=== PATIENT | female | born 1995 | race Caucasian/White ===

== ENCOUNTER 2021-04-18 22:40 | Inpatient (IN) | payer MEDICAID, SELFPAY ==
[2021-04-18 22:41] VITALS: BP 127/88; PULSE 88; RESP 18; TEMP 37.6; O2SAT 96
[2021-04-18 22:42] VITALS: BMI 19.3
--- NOTE | 2021-04-18 23:23 | PC.NURSE ---
Skin assessment revealed no wounds or injuries. There was a belly button ring that was welded.
--- NOTE | 2021-04-18 23:24 | PC.NURSE ---
During the skin assessment the patient removed her gym shorts. When the gym shorts were checked for contraband 14 Hydrocodone were discovered. The patient did admit to knowing the tabs were in her possession. She said the tabs were Seroquel. Notified Dr. Mathews.
--- NOTE | 2021-04-19 00:30 | PC.NURSE ---
The patient was given a copy of Rights of Involuntary Patients at 2145, (04/18/21). I answered her questions.
[2021-04-19] MEDS: hyDROXYzine 25 mg Capsule 50 MG PO ×3 (02:38→22:25)
--- NOTE | 2021-04-19 02:40 | PC.NURSE ---
Vistaril 50mg PO given for anxiety.
[2021-04-19] MEDS: OLANZapine 5 mg ODT PO ×3 (04:56→22:25)
--- NOTE | 2021-04-19 05:00 | PC.NURSE ---
patient given Zyprexa 5mg SL for agitation / psychosis.
[2021-04-19] MEDS: ondansetron 4 MG Tablet PO ×2 (05:40→12:11)
--- NOTE | 2021-04-19 05:42 | PC.NURSE ---
4mg zofran given for nausea.
[2021-04-19 06:00] VITALS: BP 147/104; PULSE 114; RESP 19; TEMP 37.9; O2SAT 95
[2021-04-19] MEDS: nicotine 2 mg Gum BUCCAL ×2 (06:05→22:25)
[2021-04-19] MEDS: haloperidol 5 mg Tablet PO ×2 (06:17→11:31)
--- NOTE | 2021-04-19 06:20 | PC.NURSE ---
Haldl 5mg given for acute psychosis / agitation.
[2021-04-19] MEDS: nicotine 21 mg Patch 1 PATCH TRANSDERMA (06:48)
--- NOTE | 2021-04-19 11:06 | PC.NURSE ---
PRN [id number] Administered Vistaril 50mg for anxiety, will continue to monitor pt.
--- NOTE | 2021-04-19 11:08 | PC.NURSE ---
PRN [id number] Administered Zyprexa Zydis 5mg for pt c/o anxiety, will continue to monitor pt. Pt has become verbally aggressive with staff cussing them and name calling.
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
--- NOTE | 2021-04-19 12:12 | PC.NURSE ---
prn administered Zofran 4mg for c/o upset stomach and nausea, will continue to monitor.
[2021-04-19 14:00] VITALS: BP 128/89; PULSE 79; RESP 16; O2SAT 96
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
[2021-04-19 22:00] VITALS: BP 122/83; PULSE 107; RESP 20; TEMP 37; O2SAT 99
--- NOTE | 2021-04-19 22:26 | PC.NURSE ---
Vistaril 50mg PO given for anxiety. Zyprexa 5mg po given for agitation / physchosis.
[2021-04-20] MEDS: acetaminophen 325 mg Tablet 650 MG PO ×2 (06:53→13:15)
[2021-04-20] MEDS: nicotine 2 mg Gum BUCCAL ×4 (06:53→20:51)
[2021-04-20] MEDS: hyDROXYzine 25 mg Capsule 50 MG PO ×2 (10:32→12:44)
--- NOTE | 2021-04-20 12:19 | NPU.GN ---
[facility] Unit Group Topic:Depression General Mood of Group: Kristen participated in Group today. Kristen was on time to group, dressed appropriately, she was well groomed and had good hygiene. We played Responsive Sports, at the end of the game, everyone was asked to write a number for how many of the symptoms they are having on top. Kristen wrote her number down, we discussed the different symptoms of depression and how the symptoms listed that pertained to them are a way to know where to start when speaking with the doctor. It was also discussed the importance of following up with their mental health care, discussed ways to make appointments to see a mental health provider, ways to speak with their doctor about their symptoms.
[2021-04-20 14:00] VITALS: BP 133/87; PULSE 72; RESP 17; TEMP 36.9; O2SAT 95
--- NOTE | 2021-04-20 17:13 | PM.NPN ---
Subjective NPU Subjective: Interval history: Kristen presents today continuing a lot before discharge and reports that she is fine and just need to go home and snuggle with my kitten. Her grandparents came and she attempted to get them intertwined in a scheme to try to challenge the team to discharge her. Was able to talk to grandparents who are quite helpful but also quite tearful about the loss of their daughter and the impact on their granddaughter. They endorse continued delusional and psychotic conversations as recently as the visit today. Patient continues to be intrusive and so psychotic beliefs of thought insertion, mind-reading, believe that her mother is still alive and believe that people have telepathic knowledge of her thoughts and things that she knows. She continued to have the linking behavior when she was suggesting that somehow in interviewer should know something as she is taking it. Still resistant to medications. Mental Status Exam MSE Comments: This is an underweight white female in [facility] scrubs with adequate grooming and eye contact. Abnormal movements except for mild psychomotor agitation. Cooperative with exam in mild to moderate distress. Speech was decreased volume and rate. Mood described as okay, affect labile. Thought process was organized. Thought content: Patient denied suicidal homicidal ideation, there were no delusions reported but clear paranoia and persecutory thinking existed, endorses hearing her mother's voice is unclear if other experiences are hallucinations or not as she has some fairly strange stories. Attention and concentration are mostly intact and memory was intermittently reliable but none were fully tested. She is alert and oriented times person and place. Insight and judgment are impaired and impulse control is impaired. Vitals/I&O/Wt Last Vital Signs Temp 98.6 F 04/20/21 20:17 Pulse 75 04/20/21 20:17 Resp 18 04/20/21 20:17 BP 125/87 04/20/21 20:17 Pulse Ox 95 04/20/21 20:17 A&P Additional A&P Information (1) Polysubstance dependence: (2) Bereavement: (3) Psychosis: Additional A&P Information This is a 25-year-old white female with a long history of addiction and some mental health concerns with active addiction, psychosis and bereavement who presents on a 96-hour hold desiring to be discharged. 1. Continue current medication. We will work with her to determine if past medications would be helpful and will encourage a trial of an antipsychotic to help to clear her current acute psychosis. 2. Continue every 15 minute checks for safety. 3. Encourage individual, group and milieu therapies. 4. Encourage sober living treatment after discharge at the highest level of care to which she is willing to commit. 5. We will evaluate safety for discharge on her current 96-hour hold. Involuntary Hold Information 96 Hour Hold: 96 Hour Involuntary Admission: Yes 96 Hour Hold Ending Date: 04/24/21 96 Hour Hold Ending Time: 21:27 Attestations NPU Medical Necessity Statement*: Inpatient hospitalization is medically necessary and the clinically appropriate intervention at this time. We will monitor medications and make changes as indicated. Likely length of stay 3 to 5 days. Coding Level of Care Code Acute Budget Specialist for Amish Prakash
[2021-04-20] MEDS: OLANZapine 5 mg ODT PO (17:18)
[2021-04-20] MEDS: trazodone 50 mg Tablet PO (20:02)
[2021-04-20 20:17] VITALS: BP 125/87; PULSE 75; RESP 18; TEMP 37; O2SAT 95
[2021-04-21 06:00] VITALS: RESP 17
[2021-04-21] MEDS: hyDROXYzine 25 mg Capsule 50 MG PO ×2 (09:48→21:12)
--- NOTE | 2021-04-21 09:49 | PC.NURSE ---
PRN VISTARIL 50 MG GIVEN PO PER PT C/O STATED ANXIETY. PT HAS RAPID PRESSURED SPEECH
[2021-04-21 14:00] VITALS: BP 125/87; PULSE 75; RESP 17; TEMP 37; O2SAT 95
[2021-04-21] MEDS: nicotine 2 mg Gum BUCCAL ×2 (14:02→19:32)
[2021-04-21] MEDS: loperamide 2 mg Capsule PO (17:36)
--- NOTE | 2021-04-21 17:36 | PC.NURSE ---
PRN LOPERAMIDE 2 MG GIVEN PO PER PT C/O LOOSE STOOL
[2021-04-21 18:13] VITALS: BP 135/76; PULSE 103; RESP 20; TEMP 37.7; O2SAT 95
[2021-04-21] MEDS: acetaminophen 325 mg Tablet 650 MG PO (18:23)
--- NOTE | 2021-04-21 18:30 | P.PN_ITS ---
Subjective NPU Subjective: Interval history: Patient presents today with increased psychomotor agitation but reporting more insight into the fact that she needs to be here and did not spend the day like the previous days trying to elicit discharge. She did continue to ask if she could go home but when appropriate response of the reason why she is here was given she did not resist that knee. Additionally she identified that her thoughts were problematic and after discussion of the risks, benefits and alternatives she agreed to a trial of Abilify and understood agreed to proceed as is documented in this note. Mental Status Exam MSE Comments: This is an underweight white female in [facility] scrubs with adequate grooming and eye contact. Abnormal movements except for mild psychomotor agitation. Cooperative with exam in mild distress. Speech was increased rate normal volume. Mood described as fine, affect labile and energetic. Thought process was mostly organized. Thought content: Patient denied suicidal or homicidal ideation, there were no delusions reported but clear paranoia and persecutory thinking existed as well as challenging when her mother was alive, endorses hearing her mother's voice is unclear if other experiences are hallucinations or not as she has some fairly strange stories. Attention and concentration are mostly intact and memory was intermittently reliable but none were fully tested. She is alert and oriented times 3. Insight and judgment are limited but improving and impulse control is impaired. Vitals/I&O/Wt Last Vital Signs Temp 98.4 F 04/21/21 22:00 Pulse 87 04/21/21 22:00 Resp 24 H 04/21/21 22:00 BP 135/97 04/21/21 22:00 Pulse Ox 98 04/21/21 22:00 Weight last 48 hrs Weight 54.431 kg A&P Additional A&P Information (1) Polysubstance dependence: (2) Bereavement: (3) Psychosis: Additional A&P Information This is a 25-year-old white female with a long history of addiction and some mental health concerns with active addiction, psychosis and bereavement who presents on a 96-hour hold desiring to be discharged. 1. Continue current medication. Start Abilify 10 mg p.o. every morning. 2. Continue every 15 minute checks for safety. 3. Encourage individual, group and milieu therapies. 4. Encourage sober living treatment after discharge at the highest level of care to which she is willing to commit. 5. We will evaluate safety for discharge on her current 96-hour hold. Involuntary Hold Information 96 Hour Hold: 96 Hour Involuntary Admission: Yes 96 Hour Hold Ending Date: 04/24/21 96 Hour Hold Ending Time: 21:27 Attestations NPU Medical Necessity Statement*: Inpatient hospitalization is medically necessary and the clinically appropriate intervention at this time. We will monitor medications and make changes as indicated. Likely length of stay 3 to 5 days. Coding Level of Care Code Acute Lever Operator for Amish Prakash
[2021-04-21 20:34] VITALS: BP 135/97; PULSE 87; RESP 24; TEMP 36.9; O2SAT 98
[2021-04-21] MEDS: trazodone 50 mg Tablet PO (21:12)
[2021-04-21] MEDS: ARIPiprazole 10 mg Tablet PO (21:12)
--- NOTE | 2021-04-21 21:20 | PC.NURSE ---
PT NOTED TO BE IN AND OUT OF OTHER PTS ROOMS. OTHER PTS HAVE VOICED BEING AFRAID OF THIS PT. WHEN PT IS CONFRONTED AND ASKED TO NOT BOTHER OTHER PTS, THIS PT STATES I CAN'T HELP IT, I CAN'T SLEEP. HALDOL 5MG PO FOR ANXIETY, VISTARIL 50MG PO FOR ANXIETY AND TRAZODONE 50MG PO FOR SLEEP GIVEN.
[2021-04-21 22:00] VITALS: BP 135/97; PULSE 87; RESP 24; TEMP 36.9; O2SAT 98
--- NOTE | 2021-04-21 23:00 | PC.NURSE ---
PT CONTINUES TO PACE FROM ROOM TO NURSES DESK.
[2021-04-21] MEDS: haloperidol 5 mg Tablet PO (23:21)
[2021-04-22] MEDS: haloperidol inj 5 mg/mL INJ 1 mL IM (00:20)
[2021-04-22] MEDS: LORazepam 2 mg/mL INJ 1 mL IM (00:20)
[2021-04-22] MEDS: diphenhydrAMINE 50 mg/mL SDV 1mL IM (00:20)
--- NOTE | 2021-04-22 00:30 | PC.NURSE ---
PT CONTINUOUSLY PACING BETWEEN ROOM AND NURSES DESK AND DAYROOM, LOUDLY TALKING TO HERSELF, TALKING ON THE PT PHONE EVEN AFTER IT HAS BEEN TURNED OFF. SECURITY CALLED TO ASSIST FOR SAFETY, ATIVAN 2MG IM, HALDOL 5MG IM GIVEN IN LEFT DELTOID AND BENADRYL 50MG IM GIVEN IN RT LATERAL HIP. WILL MONITOR.
--- NOTE | 2021-04-22 01:45 | PC.NURSE ---
PT CONTINUES PACING BETWEEN NURSES DESK, PT PHONE AND ROOM. PT ADVISED TO GO BACK TO HER ROOM AND TRY TO GO TO SLEEP BECAUSE SHE APPEARS TO BE DROWSY WITH EYES ALMOST CLOSED. PT DOES GO BACK TO HER ROOM, BUT DOES NOT STAY LONG BEFORE SHE'S BACK UP TO THE DESK ASKING ABOUT GETTING HER PURSE OR HER CELL PHONE. PT HAS BEEN TOLD SEVERAL TIMES THIS NIGHT THAT SHE CAN NOT HAVE HER PERSONAL BELONGINGS UNTIL SHE IS DISCHARGED, BUT PT IS UNABLE TO COMPREHEND WHAT'S BEING TOLD TO HER.
[2021-04-22 05:22] VITALS: BMI 19.3
[2021-04-22 06:00] VITALS: RESP 18; TEMP 36.3
[2021-04-22] MEDS: ARIPiprazole 10 mg Tablet PO (08:50)
[2021-04-22] MEDS: nicotine 2 mg Gum BUCCAL ×2 (13:48→19:49)
[2021-04-22 14:12] VITALS: BP 124/91; PULSE 100; RESP 20; TEMP 37; O2SAT 97
--- NOTE | 2021-04-22 16:31 | PM.NPN ---
Subjective NPU Subjective: Interval history: Kristen continues to have significant psychosis and d?j? vu. He continues to take everybody is someone she knows and that they are the ones confused by who they are. She calls people different names. She is interested in personal space. She suggested that this justowriter operator was her baby dadblaise even though she does not have children. She continues to believe that people can read her mind and she knows what people are thinking. We discussed the likelihood of a 21-day hold. Mental Status Exam MSE Comments: This is an underweight white female in [facility] scrubs with adequate grooming and eye contact. Abnormal movements except for mild psychomotor agitation. Cooperative with exam in mild distress. Speech was increased rate normal volume. Mood described as good, affect labile and energetic. Thought process was mostly organized. Thought content: Patient denied suicidal or homicidal ideation, there were no delusions reported but clear paranoia and persecutory thinking existed as well as challenging when her mother was alive, endorses hearing her mother's voice is unclear if other experiences are hallucinations or not as she has some fairly strange stories. Attention and concentration are mostly intact and memory was intermittently reliable but none were fully tested. She is alert and oriented times 3. Insight and judgment are limited but improving and impulse control is impaired. Vitals/I&O/Wt Last Vital Signs Temp 98.5 F 04/22/21 22:00 Pulse 106 H 04/22/21 22:00 Resp 18 04/22/21 22:00 BP 104/64 04/22/21 22:00 Pulse Ox 97 04/22/21 22:00 Weight last 48 hrs Weight 54.431 kg A&P Additional A&P Information (1) Polysubstance dependence: (2) Bereavement: (3) Psychosis: Additional A&P Information This is a 25-year-old white female with a long history of addiction and some mental health concerns with active addiction, psychosis and bereavement who presents on a 96-hour hold desiring to be discharged. 1. Continue current medication. Increase Abilify to 15 mg in the morning. 2. Continue every 15 minute checks for safety. 3. Encourage individual, group and milieu therapies. 4. Encourage sober living treatment after discharge at the highest level of care to which she is willing to commit. 5. We will likely submit 21-day paperwork. Involuntary Hold Information 96 Hour Hold: 96 Hour Involuntary Admission: Yes 96 Hour Hold Ending Date: 04/24/21 96 Hour Hold Ending Time: 21:27 Attestations NPU Medical Necessity Statement*: Inpatient hospitalization is medically necessary and the clinically appropriate intervention at this time. We will monitor medications and make changes as indicated. Likely length of stay 3 to 5 days. Coding Level of Care Code Acute Color Maker Dyer for Amish Prakash
[2021-04-22] MEDS: hyDROXYzine 25 mg Capsule 50 MG PO (16:42)
[2021-04-22] MEDS: haloperidol 5 mg Tablet PO (21:08)
[2021-04-22] MEDS: OLANZapine 5 mg ODT PO (21:08)
[2021-04-22 22:00] VITALS: BP 104/64; PULSE 106; RESP 18; TEMP 36.9; O2SAT 97
[2021-04-23 06:00] VITALS: BP 116/75; PULSE 81; RESP 16; TEMP 37.2; O2SAT 97
[2021-04-23] MEDS: ARIPiprazole 30 mg Tablet 15 MG PO (08:13)
[2021-04-23] MEDS: nicotine 2 mg Gum BUCCAL ×4 (08:15→21:22)
[2021-04-23 14:00] VITALS: BP 114/81; PULSE 102; RESP 16; TEMP 37.2; O2SAT 95
--- NOTE | 2021-04-23 17:16 | PM.NPN ---
Subjective NPU Subjective: Interval history: Kristen presents today reporting that she is doing better and ready for discharge. She wrote a lengthy note that she read verbatim basically said many things already said lobbying to go home to her grandparents who continue to have great concern about her wellness. We continue to treat our concerns for her psychosis and safety and she reports that she understands but continues to reportedly get so much better if she were home with her family and her pets. Mental Status Exam MSE Comments: This is an underweight white female in [facility] scrubs with adequate grooming and eye contact. Abnormal movements except for mild psychomotor agitation. Cooperative with exam in mild distress. Speech was more normal rate normal volume. Mood described as good, affect labile and less energetic. Thought process was mostly organized. Thought content: Patient denied suicidal or homicidal ideation, there were no delusions reported but clear paranoia and persecutory thinking existed as well as challenging when her mother was alive, endorses hearing her mother's voice is unclear if other experiences are hallucinations or not as she has some fairly strange stories. Attention and concentration are mostly intact and memory was intermittently reliable but none were fully tested. She is alert and oriented times 3. Insight and judgment are limited but improving and impulse control is impaired. Vitals/I&O/Wt Last Vital Signs Temp 97.3 F L 04/23/21 21:08 Pulse 100 04/23/21 21:08 Resp 18 04/23/21 21:08 BP 110/75 04/23/21 21:08 Pulse Ox 93 04/23/21 21:08 A&P Additional A&P Information (1) Polysubstance dependence: (2) Bereavement: (3) Psychosis: This is a 25-year-old white female with a long history of addiction and some mental health concerns with active addiction, psychosis and bereavement who presents on a 96-hour hold desiring to be discharged. 1. Continue current medication. 2. Continue every 15 minute checks for safety. 3. Encourage individual, group and milieu therapies. 4. Encourage sober living treatment after discharge at the highest level of care to which she is willing to commit. 5. Filed 21-day paperwork. Involuntary Hold Information 96 Hour Hold: 96 Hour Involuntary Admission: Yes 96 Hour Hold Ending Date: 04/24/21 96 Hour Hold Ending Time: 21:27 Attestations NPU Medical Necessity Statement*: Inpatient hospitalization is medically necessary and the clinically appropriate intervention at this time. We will monitor medications and make changes as indicated. Likely length of stay 6-10 days. Coding Level of Care Code Acute Career Resource Technician for Amish Prakash
[2021-04-23] MEDS: OLANZapine 5 mg ODT PO (21:07)
[2021-04-23 21:08] VITALS: BP 110/75; PULSE 100; RESP 18; TEMP 36.3; O2SAT 93
[2021-04-23] MEDS: haloperidol 5 mg Tablet PO (21:08)
[2021-04-24 06:00] VITALS: BP 115/76; PULSE 63; RESP 20; TEMP 36.9; O2SAT 98
[2021-04-24] MEDS: ARIPiprazole 30 mg Tablet 15 MG PO (08:19)
[2021-04-24] MEDS: nicotine 2 mg Gum BUCCAL ×3 (09:39→17:19)
--- NOTE | 2021-04-24 13:46 | PM.NPN ---
Subjective NPU Subjective: Interval history: Kristen presents today reporting improvements and though our conversation surrounded discharge considerations he did not continue to request to be discharged. 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 We discussed her slow but steady improvement she had less delusional content that she would discuss and seem to be gaining a little more insight. Mental Status Exam MSE Comments: This is an underweight white female in [facility] scrubs with adequate grooming and eye contact. Abnormal movements. Cooperative with exam in no acute distress. Speech was more normal rate and volume. Mood described as good, affect less labile and more stable. Thought process was mostly organized. Thought content: Patient denied suicidal or homicidal ideation, there were no delusions reported and paranoia and persecutory thinking is decreasing, there were no auditory or visual hallucinations endorsed but she is still struggling with this taking people for other people. Attention and concentration are mostly intact and memory was more reliable but none were formally tested. She is alert and oriented times 3. Insight and judgment are limited but improving and impulse control is improving. Vitals/I&O/Wt Last Vital Signs Temp 98.4 F 04/24/21 06:00 Pulse 63 04/24/21 06:00 Resp 20 H 04/24/21 06:00 BP 115/76 04/24/21 06:00 Pulse Ox 98 04/24/21 06:00 A&P Additional A&P Information (1) Polysubstance dependence: (2) Bereavement: (3) Psychosis: This is a 25-year-old white female with a long history of addiction and some mental health concerns with active addiction, psychosis and bereavement who presents on a 96-hour hold desiring to be discharged. 1. Continue current medication. 2. Continue every 15 minute checks for safety. 3. Encourage individual, group and milieu therapies. 4. Encourage sober living treatment after discharge at the highest level of care to which she is willing to commit. 5. 21-day hold hearing on . Involuntary Hold Information 96 Hour Hold: 96 Hour Involuntary Admission: Yes 96 Hour Hold Ending Date: 04/24/21 96 Hour Hold Ending Time: 21:27 Attestations NPU Medical Necessity Statement*: Inpatient hospitalization is medically necessary and the clinically appropriate intervention at this time. We will monitor medications and make changes as indicated. Likely length of stay 4-8 days. Coding Level of Care Code Acute Insurance Agency Sales Manager for Amish Prakash
[2021-04-24 14:00] VITALS: BP 115/85; PULSE 96; RESP 18; TEMP 37.4; O2SAT 96
--- NOTE | 2021-04-24 14:48 | NPU.GN ---
[facility] Group Topic:Depression General Mood of Group: Kristen did attend group today, she was on time and her appearance was appropriate, she had good hygiene, she did participate. Today we played [employer], The patients marked an X on the symptoms that were called out. After the game was over, we discussed the many different symptoms that were displayed on the bingo card and discussed which symptoms they felt they suffer from and talked about ways to speak to the doctor about them.
[2021-04-24] MEDS: OLANZapine 5 mg ODT PO (21:16)
[2021-04-24] MEDS: hyDROXYzine 25 mg Capsule 50 MG PO (21:16)
--- NOTE | 2021-04-24 21:20 | PC.NURSE ---
PT REQUEST CAN I HAVE THE SAME MEDICINES I HAD THE LAST COUPLE OF NIGHTS, I'VE SLEPT THE BEST THESE LAST COUPLE NIGHTS . ZYPREXA 5MG PO AND HALDOL 5MG PO GIVEN FOR INCREASED ANXIETY.
[2021-04-24 22:00] VITALS: BP 119/94; PULSE 83; RESP 17; TEMP 37; O2SAT 97
--- NOTE | 2021-04-24 23:00 | PC.NURSE ---
PT RESTING QUIETLY WITH BOTH EYES CLOSED.
[2021-04-25 06:00] VITALS: BP 126/88; PULSE 62; RESP 18; TEMP 36.3; O2SAT 98
[2021-04-25] MEDS: ARIPiprazole 30 mg Tablet 15 MG PO (07:57)
[2021-04-25] MEDS: acetaminophen 325 mg Tablet 650 MG PO (11:33)
[2021-04-25] MEDS: nicotine 2 mg Gum BUCCAL ×2 (11:35→20:51)
--- NOTE | 2021-04-25 12:23 | NPU.GN ---
[facility] NeuroPsych Unit Group Topic: Self Medicating General Mood of Group: Kristen appeared in good spirits and participated in group. CSS asked her if what she thought self medicating was. Kristen said yes and I do that a lot because I like it. CSS then ask if it made a difference in life when she does. Kristen said no just makes things worse. CSS encouraged her to talk to the Doctor about a referral to [facility], to see if she may qualify for TCM or CPRC service to assist her in getting to and maintaining a healthy lifestyle without using drug.
[2021-04-25 14:00] VITALS: BP 121/75; PULSE 101; RESP 20; TEMP 36.9; O2SAT 96
[2021-04-25] MEDS: hyDROXYzine 25 mg Capsule 50 MG PO ×2 (15:09→20:50)
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
--- NOTE | 2021-04-25 18:00 | PM.NPN ---
Subjective NPU Subjective: Interval history: Kristen presents today reporting continued improvement in greater understanding of the circumstances that have led to her being here. She demonstrated this in some ways but also had moments where he was cleared she still experiences d?j? 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 We discussed her hearing tomorrow and how that would work. In the likelihood that she would not require full additional stay but still is not ready to discharge to home. Mental Status Exam MSE Comments: This is an underweight white female in [facility] scrubs with adequate grooming and eye contact. Abnormal movements. Cooperative with exam in no acute distress. Speech was more normal rate and volume. Mood described as good, affect less labile and more stable. Thought process was mostly organized. Thought content: Patient denied suicidal or homicidal ideation, there were no delusions reported and paranoia and persecutory thinking is decreasing, there were no auditory or visual hallucinations endorsed but she is still struggling with this taking people for other people. Attention and concentration are mostly intact and memory was more reliable but none were formally tested. She is alert and oriented times 3. Insight and judgment are limited but improving and impulse control is improving. Vitals/I&O/Wt Last Vital Signs Temp 98.0 F 04/25/21 20:19 Pulse 81 04/25/21 20:19 Resp 16 04/25/21 20:19 BP 117/77 04/25/21 20:19 Pulse Ox 99 04/25/21 20:19 A&P Additional A&P Information (1) Polysubstance dependence: (2) Bereavement: (3) Psychosis: This is a 25-year-old white female with a long history of addiction and some mental health concerns with active addiction, psychosis and bereavement who presents on a 96-hour hold desiring to be discharged. 1. Continue current medication. 2. Continue every 15 minute checks for safety. 3. Encourage individual, group and milieu therapies. 4. Encourage sober living treatment after discharge at the highest level of care to which she is willing to commit. 5. 21-day hold hearing on tomorrow. Involuntary Hold Information 96 Hour Hold: 96 Hour Involuntary Admission: Yes 96 Hour Hold Ending Date: 04/24/21 96 Hour Hold Ending Time: 21:27 Attestations NPU Medical Necessity Statement*: Inpatient hospitalization is medically necessary and the clinically appropriate intervention at this time. We will monitor medications and make changes as indicated. Likely length of stay 3-7 days. Coding Level of Care Code Acute Semiconductor Manufacturing Technician for Amish Prakash
[2021-04-25 20:19] VITALS: BP 117/77; PULSE 81; RESP 16; TEMP 36.7; O2SAT 99
[2021-04-25] MEDS: trazodone 50 mg Tablet PO (20:50)
[2021-04-26] MEDS: hyDROXYzine 25 mg Capsule 50 MG PO ×3 (03:22→21:01)
--- NOTE | 2021-04-26 03:24 | PC.NURSE ---
Vistaril 50mg PO given for anxiety. Pt reports difficult time sleeping, requested medication.
--- NOTE | 2021-04-26 03:56 | PC.NURSE ---
Follow up vistaril administration, pt is no longer anxious, resting at this time. Medication effective
[2021-04-26 06:00] VITALS: BP 124/75; PULSE 86; RESP 18; TEMP 37; O2SAT 96
[2021-04-26] MEDS: ARIPiprazole 30 mg Tablet 15 MG PO (08:36)
[2021-04-26] MEDS: nicotine 2 mg Gum BUCCAL ×2 (08:36→21:02)
[2021-04-26] MEDS: nicotine 21 mg Patch 1 PATCH TRANSDERMA (11:24)
--- NOTE | 2021-04-26 13:39 | PC.NURSE ---
Patient off unit at [id number]
[2021-04-26 14:00] VITALS: BP 129/79; PULSE 116; RESP 20; TEMP 37.1; O2SAT 96
--- NOTE | 2021-04-26 14:38 | PC.NURSE ---
Patient back on unit
--- NOTE | 2021-04-26 16:19 | P.PN_ITS ---
Subjective NPU Subjective: Interval history: Kristen presented to the session asking about the hearing and how things will go I discussed with her the types of questions and will be asking me and her and with my answers will be. I expressed to her my concerns about her discharging and that is why 21-day hearing is occurring. She continues to have difficulties with psychosis, d?j? vu, thinking people are people they are not in relieving conspiracy. He is with her at the [facility] the [facility]. Mental Status Exam MSE Comments: This is an underweight white female in [facility] scr[facility] with adequate grooming and eye contact. Abnormal movements. Cooperative with exam in no acute distress. Speech was more normal rate and volume. Mood described as good, affect less labile and more stable. Thought process was mostly organized. Thought content: Patient denied suicidal or homicidal ideation, there were no delusions reported and paranoia and persecutory thinking is decreasing, there were no auditory or visual hallucinations endorsed but she is still struggling with this thinking people are other people. Attention and concentration are mostly intact and memory was more reliable but none were formally tested. She is alert and oriented times 3. Insight and judgment are limited but improving and impulse control is improving. Vitals/I&O/Wt Last Vital Signs Temp 98.8 F 04/26/21 14:00 Pulse 116 H 04/26/21 14:00 Resp 20 H 04/26/21 14:00 BP 129/79 04/26/21 14:00 Pulse Ox 96 04/26/21 14:00 A&P Additional A&P Information (1) Polysubstance dependence: (2) Bereavement: (3) Psychosis: This is a 25-year-old white female with a long history of addiction and some mental health concerns with active addiction, psychosis and bereavement who presents on a 96-hour hold desiring to be discharged. 1. Continue current medication. Will consider abilify injection. 2. Continue every 15 minute checks for safety. 3. Encourage individual, group and milieu therapies. 4. Encourage sober living treatment after discharge at the highest level of care to which she is willing to commit. 5. Placed on 21 day hold at [facility]. Involuntary Hold Information 96 Hour Hold: 96 Hour Involuntary Admission: Yes 96 Hour Hold Ending Date: 04/24/21 96 Hour Hold Ending Time: 21:27 Attestations NPU Medical Necessity Statement*: Inpatient hospitalization is medically necessary and the clinically appropriate intervention at this time. We will monitor medications and make changes as indicated. Likely length of stay 3-6 days. Coding Level of Care Code Acute Manager Paid for Amish Prakash
[2021-04-26 18:57] LABS: Add Urine Culture? Yes; Bacteria Urine 1+ /hpf; Bilirubin Urine Neg (Negative); Blood Urine Neg (Negative); Glucose Urine UA Norm (Normal); Ketones Urine Negative (Negative); Leukocyte Esterase Urine 2+ (Negative); Mucus Urine 1+ /hpf; Nitrate Urine Negative (Negative); Protein Urine Neg (Negative); Squamous Epithelial Cell Urine 0-4 /hpf (0-5); Urine Appearance Clear (CLEAR); Urine Color Yellow (Yellow); Urobilinogen Urine Neg (Negative); pH Urine 7 (5-7)
[2021-04-26 20:29] VITALS: BP 111/78; PULSE 103; RESP 18; TEMP 37.1; O2SAT 98
[2021-04-26] MEDS: trazodone 50 mg Tablet PO (21:01)
[2021-04-27] MEDS: hyDROXYzine 25 mg Capsule 50 MG PO ×3 (04:20→22:38)
--- NOTE | 2021-04-27 04:20 | PC.NURSE ---
Vistaril 50mg given for anxiety
[2021-04-27 06:00] VITALS: BP 118/22; PULSE 140; RESP 18; TEMP 36.8; O2SAT 96
[2021-04-27] MEDS: ARIPiprazole 30 mg Tablet 15 MG PO (08:57)
[2021-04-27] MEDS: acetaminophen 325 mg Tablet 650 MG PO ×2 (08:58→16:26)
[2021-04-27 14:00] VITALS: BP 118/22; PULSE 140; RESP 18; TEMP 36.8; O2SAT 96
--- NOTE | 2021-04-27 15:10 | PM.NPN ---
Subjective NPU Subjective: Interval history: Kristen presented today just prior to meeting with her grandfather for visitation much like most recent presentations stating that she now understands why I wanted her to stay and believe she knows the solution but it continues to be based on some false, mind-reading type of epiphany. C more or less said that she would be willing to snitch in regards to anything she knows about her mother's so that I can tell the authorities what I need to tell them. I once again assured her that I have no relation to the law or legal authorities and am not part of any investigation or process related to her mother's . She once again gave me that look that is supposed to mean that I know what she does and what she is talking about. Mental Status Exam MSE Comments: This is an underweight white female in [facility] scrubs with adequate grooming and eye contact. Abnormal movements. Cooperative with exam in no acute distress. Speech was more normal rate and volume. Mood described as good, affect less labile and more stable. Thought process was mostly organized. Thought content: Patient denied suicidal or homicidal ideation, there were no delusions reported and paranoia and persecutory thinking is decreasing, there were no auditory or visual hallucinations endorsed but she is still struggling with this thinking people are other people. Attention and concentration are mostly intact and memory was more reliable but none were formally tested. She is alert and oriented times 3. Insight and judgment are limited but improving and impulse control is improving. Vitals/I&O/Wt Last Vital Signs Temp 98.1 F 04/27/21 21:55 Pulse 105 H 04/27/21 21:55 Resp 19 H 04/27/21 21:55 BP 116/82 04/27/21 21:55 Pulse Ox 95 04/27/21 21:55 A&P Additional A&P Information (1) Polysubstance dependence: (2) Bereavement: (3) Psychosis: This is a 25-year-old white female with a long history of addiction and some mental health concerns with active addiction, psychosis and bereavement who presents on a 96-hour hold desiring to be discharged. 1. Continue current medication. 2. Continue every 15 minute checks for safety. 3. Encourage individual, group and milieu therapies. 4. Encourage sober living treatment after discharge at the highest level of care to which she is willing to commit. 5. Awaiting notice that we will have approval to start the Abilify Maintena injection. Involuntary Hold Information 96 Hour Hold: 96 Hour Involuntary Admission: Yes 96 Hour Hold Ending Date: 04/24/21 96 Hour Hold Ending Time: 21:27 Attestations NPU Medical Necessity Statement*: Inpatient hospitalization is medically necessary and the clinically appropriate intervention at this time. We will monitor medications and make changes as indicated. Likely length of stay 3-6 days. Coding Level of Care Code Acute Training And Development Manager for Amish Prakash
[2021-04-27] MEDS: nicotine 2 mg Gum BUCCAL ×2 (19:15→22:38)
[2021-04-27 21:55] VITALS: BP 116/82; PULSE 105; RESP 19; TEMP 36.7; O2SAT 95
[2021-04-27] MEDS: trazodone 50 mg Tablet PO ×2 (22:37→22:39)
[2021-04-28 06:00] VITALS: BP 118/76; PULSE 100; RESP 17; TEMP 37; O2SAT 96
[2021-04-28] MEDS: ARIPiprazole 30 mg Tablet 15 MG PO (09:01)
[2021-04-28] MEDS: nicotine 21 mg Patch 1 PATCH TRANSDERMA (09:11)
[2021-04-28] MEDS: hyDROXYzine 25 mg Capsule 50 MG PO ×2 (13:15→19:18)
[2021-04-28 14:00] VITALS: BP 116/71; PULSE 123; RESP 20; TEMP 36.9; O2SAT 90
--- NOTE | 2021-04-28 16:18 | P.PN_ITS ---
Subjective NPU Subjective: Interval history: Patient presents today reporting that things are going better and she knows that we are trying to help her. She wants to go home as soon as possible. We discussed the possibility of the injection and she was not sure what she wanted to do. She continued to have d?j? vu and confusion but seems to be somewhat better. Mental Status Exam MSE Comments: This is an underweight white female in [facility] scrubs with adequate grooming and eye contact. Abnormal movements. Cooperative with exam in no acute distress. Speech was more normal rate and volume. Mood described as good, affect less labile and more stable. Thought process was mostly organized. Thought content: Patient denied suicidal or homicidal ideation, there were no delusions reported and paranoia and persecutory thinking is decreasing, there were no auditory or visual hallucinations endorsed but she is still struggling with this thinking people are other people. Attention and concentration are mostly intact and memory was more reliable but none were formally tested. She is alert and oriented times 3. Insight and judgment are limited but improving and impulse control is improving. Vitals/I&O/Wt Last Vital Signs Temp 98.5 F 04/28/21 14:00 Pulse 123 H 04/28/21 14:00 Resp 20 H 04/28/21 14:00 BP 116/71 04/28/21 14:00 Pulse Ox 90 04/28/21 14:00 Weight last 48 hrs Weight 54.431 kg Data NPU Micro: Microbiology 04/26/21 17:10 Urine Culture - Preliminary Urine,Clean Catch Microbiology 04/26/21 17:10 Urine,Clean Catch Urine Culture - Preliminary A&P Additional A&P Information (1) Polysubstance dependence: (2) Bereavement: (3) Psychosis: This is a 25-year-old white female with a long history of addiction and some mental health concerns with active addiction, psychosis and bereavement who presents on a 96-hour hold desiring to be discharged. 1. Continue current medication. 2. Continue every 15 minute checks for safety. 3. Encourage individual, group and milieu therapies. 4. Encourage sober living treatment after discharge at the highest level of care to which she is willing to commit. 5. Awaiting notice that we will have approval to start the Abilify Maintena injection. Involuntary Hold Information 96 Hour Hold: 96 Hour Involuntary Admission: Yes 96 Hour Hold Ending Date: 04/24/21 96 Hour Hold Ending Time: 21:27 Attestations NPU Medical Necessity Statement*: Inpatient hospitalization is medically necessary and the clinically appropriate intervention at this time. We will monitor medications and make changes as indicated. Likely length of stay 3-6 days. Coding Level of Care Code Acute Reconstructive Dentist for Amish Prakash
[2021-04-28 22:00] VITALS: BP 115/72; PULSE 93; RESP 17; TEMP 36.9; O2SAT 99
[2021-04-29] MEDS: hyDROXYzine 25 mg Capsule 50 MG PO ×3 (03:25→20:55)
[2021-04-29 05:56] VITALS: BP 104/68; PULSE 82; RESP 16; TEMP 36.9; O2SAT 98
[2021-04-29] MEDS: ARIPiprazole 30 mg Tablet 15 MG PO (10:14)
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
[2021-04-29 14:00] VITALS: BP 116/75; PULSE 98; RESP 20; TEMP 37.1; O2SAT 98
[2021-04-29] MEDS: nicotine 2 mg Gum BUCCAL ×3 (15:50→20:55)
--- NOTE | 2021-04-29 17:34 | PC.NURSE ---
PRN VISTARIL PRN VISTARIL 50 MG GIVEN PO PER PT C/O ANXIETY. WILL CONTINUE TO MONITOR FOR MEDICATION EFFECTIVENESS.
--- NOTE | 2021-04-29 18:19 | PC.NURSE ---
Patient resting without distress at present.
[2021-04-29] MEDS: trazodone 50 mg Tablet PO (20:55)
[2021-04-29 21:04] VITALS: BP 111/69; PULSE 120; RESP 15; TEMP 37.1; O2SAT 96
[2021-04-30 06:00] VITALS: BP 111/72; PULSE 101; RESP 16; TEMP 36.6; O2SAT 98
[2021-04-30] MEDS: ARIPiprazole 10 mg Tablet 20 MG PO (08:15)
[2021-04-30 14:00] VITALS: BP 104/61; PULSE 102; RESP 15; TEMP 37.2; O2SAT 99
--- NOTE | 2021-04-30 16:29 | PM.NPN ---
Subjective NPU Subjective: Interval history: Kristen presents today continuing to report that she is improving and wanting to be home. She had a very tearful visit with her grandmother and endorsed with her sadness and missing them. She continues to slow but steady improvement in her psychosis with most overt signs diminishing. Less d?j? vu type experiences less mistaken identity noted. Continue to try to get an exact date of when she might discharge. Advised her it would unlikely be before the end of the week at the earliest. Mental Status Exam MSE Comments: This is an underweight white female in [facility] scrubs with adequate grooming and eye contact. No abnormal movements except for mild psychomotor retardation. Cooperative with exam in no acute distress. Speech was more normal rate and volume. Mood described as good, affect slightly subdued. Thought process was mostly organized. Thought content: Patient denied suicidal or homicidal ideation, there were no delusions reported and paranoia and persecutory thinking is decreasing, there were no auditory or visual hallucinations endorsed. Attention and concentration are mostly intact and memory was more reliable but none were formally tested. She is alert and oriented times 3. Insight and judgment are limited but improving and impulse control is improving. Vitals/I&O/Wt Last Vital Signs Temp 99.0 F 04/30/21 14:00 Pulse 102 H 04/30/21 14:00 Resp 15 04/30/21 14:00 BP 104/61 04/30/21 14:00 Pulse Ox 99 04/30/21 14:00 Weight last 48 hrs Weight 54.431 kg A&P Additional A&P Information (1) Polysubstance dependence: (2) Bereavement: (3) Psychosis: This is a 25-year-old white female with a long history of addiction and some mental health concerns with active addiction, psychosis and bereavement who presents on a 96-hour hold desiring to be discharged. 1. Continue current medication. 2. Continue every 15 minute checks for safety. 3. Encourage individual, group and milieu therapies. 4. Encourage sober living treatment after discharge at the highest level of care to which she is willing to commit. 5. Awaiting notice that we will have approval to start the Abilify Maintena injection. Involuntary Hold Information 96 Hour Hold: 96 Hour Involuntary Admission: Yes 96 Hour Hold Ending Date: 04/24/21 96 Hour Hold Ending Time: 21:27 Attestations NPU Medical Necessity Statement*: Inpatient hospitalization is medically necessary and the clinically appropriate intervention at this time. We will monitor medications and make changes as indicated. Likely length of stay 3-5 days. Coding Level of Care Code Acute Brass Pickler for Amish Prakash
[2021-04-30] MEDS: hyDROXYzine 25 mg Capsule 50 MG PO (17:32)
[2021-04-30 22:00] VITALS: BP 106/65; PULSE 81; RESP 16; TEMP 36.6; O2SAT 95
[2021-05-01] MEDS: nicotine 2 mg Gum BUCCAL ×2 (01:12→15:38)
[2021-05-01] MEDS: hyDROXYzine 25 mg Capsule 50 MG PO (01:12)
[2021-05-01] MEDS: trazodone 50 mg Tablet PO (01:12)
--- NOTE | 2021-05-01 01:15 | PC.NURSE ---
Trazodone 50mg PO, Vistaril 50mgPO given for sleep and anxiety.
--- NOTE | 2021-05-01 01:25 | PC.NURSE ---
Trazodone 50mg PO given for sleep ; Vistaril 50mg PO given for anxiety.
[2021-05-01 06:00] VITALS: BP 113/67; PULSE 91; RESP 17; TEMP 37.1; O2SAT 99
[2021-05-01] MEDS: ARIPiprazole 10 mg Tablet 20 MG PO (08:24)
[2021-05-01] MEDS: ARIPiprazole Maintena 400 MG IM (12:27)
--- NOTE | 2021-05-01 12:30 | NPU.GN ---
[facility] Group Topic: Two True one False General Mood of Group: Patient did attend group, she was properly dressed, on time, and had good hygiene. In group we played a game called 2 true one false. Everyone had to come up with 2 true statements about their self and one false statement about their self, this was a way to get group members to openly talk about themselves. They are able to utilize positive self talk. The group interacted properly and openly. Kristen was not as talkative today but as always is already at group and ready to start. Always to first one to group. She does participate well and is making better sense of her words. We discussed the purpose of NPU, ways to openly speak with the physician and discussed the purpose of executive secretary social welfare and safe discharge. One her two true were that her family loved her, this is a big deal as she has mentioned lack of family support.
[2021-05-01 14:00] VITALS: BP 104/66; PULSE 112; RESP 18; TEMP 37.2; O2SAT 96
--- NOTE | 2021-05-01 18:11 | P.PN_ITS ---
Subjective NPU Subjective: Interval history: Patient presents today reporting that she is feeling better. Is much calmer and this except the injection of Abilify Maintena 400 mg IM. She reported that the needle was large but she coped with getting a shot. She once again was pressing about when discharge would occur and gave some reason why Friday might be problematic. She also reported that her family stated that if she did not leave tomorrow they want him to come visit her tomorrow and use this as a reason to be discharged tomorrow. At this point she is showing some improvement and has taken the injection. Mental Status Exam MSE Comments: This is an underweight white female in [facility] scrubs with adequate grooming and eye contact. No abnormal movements except for mild psychomotor retardation. Cooperative with exam in no acute distress. Speech was more normal rate and volume. Mood described as good, affect slightly subdued. Thought process was mostly organized. Thought content: Patient denied suicidal or homicidal ideation, there were no delusions reported and paranoia and persecutory thinking is decreasing, there were no auditory or visual hallucinations endorsed. Attention and concentration are mostly intact and memory was more reliable but none were formally tested. She is alert and oriented times 3. Insight and judgment are limited but improving and impulse control is improving. Vitals/I&O/Wt Last Vital Signs Temp 98.6 F 05/01/21 21:38 Pulse 79 05/01/21 21:38 Resp 18 05/01/21 21:38 BP 107/65 05/01/21 21:38 Pulse Ox 97 05/01/21 21:38 A&P Additional A&P Information (1) Polysubstance dependence: (2) Bereavement: (3) Psychosis: This is a 25-year-old white female with a long history of addiction and some mental health concerns with active addiction, psychosis and bereavement who presents on a 96-hour hold desiring to be discharged. 1. Continue current medication. 2. Continue every 15 minute checks for safety. 3. Encourage individual, group and milieu therapies. 4. Encourage sober living treatment after discharge at the highest level of care to which she is willing to commit. Involuntary Hold Information 96 Hour Hold: 96 Hour Involuntary Admission: Yes 96 Hour Hold Ending Date: 04/24/21 96 Hour Hold Ending Time: 21:27 Attestations NPU Medical Necessity Statement*: Inpatient hospitalization is medically necessary and the clinically appropriate intervention at this time. We will monitor medications and make changes as indicated. Likely length of stay 2-4 days. Coding Level of Care Code Acute Home Health Speech Therapist for Amish Prakash
[2021-05-01 21:38] VITALS: BP 107/65; PULSE 79; RESP 18; TEMP 37; O2SAT 97
[2021-05-02] MEDS: hyDROXYzine 25 mg Capsule 50 MG PO ×3 (01:18→21:06)
[2021-05-02] MEDS: trazodone 50 mg Tablet PO ×3 (01:19→22:31)
--- NOTE | 2021-05-02 01:19 | PC.NURSE ---
PRNS Trazodone 50mg PO given for insomnia Vistaril 50mg PO given for anxiety
[2021-05-02 06:00] VITALS: BP 107/65; PULSE 79; RESP 18; TEMP 37; O2SAT 97
[2021-05-02] MEDS: ARIPiprazole 10 mg Tablet 20 MG PO (09:17)
[2021-05-02] MEDS: nicotine 2 mg Gum BUCCAL ×4 (10:39→21:06)
[2021-05-02 14:00] VITALS: BP 109/74; PULSE 113; RESP 18; TEMP 37; O2SAT 98
--- NOTE | 2021-05-02 15:44 | PC.NURSE ---
PRN MED PT GIVEN 50MG VISTARIL FOR ANXIETY, WILL CONTINE TO MONITOR.
--- NOTE | 2021-05-02 16:04 | P.PN_ITS ---
Subjective NPU Subjective: Interval history: Kristen presents today reporting that she would like to homelessness possible course. She is continuing to have slow improvement in the able to not get derailed with thoughts of d?j? vu and the like. Concerns still exist about her impulse control once she gets in a uncontrolled environment. We will connect with family in the next day or so and start considering discharge. She has had the injection and so at least for the short-term she will be therapeutic in likely 8 or 9 days or so and will not need to take the oral medication anymore Mental Status Exam MSE Comments: This is an underweight white female in [facility] with adequate grooming and eye contact. No abnormal movements except for mild psychomotor retardation. Cooperative with exam in no acute distress. Speech was more normal rate and volume. Mood described as good, affect slightly subdued. Thought process was mostly organized. Thought content: Patient denied suicidal or homicidal ideation, there were no delusions reported or noted, there were no auditory or visual hallucinations endorsed. Attention and concentration are mostly intact and memory was more reliable but none were formally tested. She is alert and oriented times 3. Insight and judgment are limited but improving and impulse control is improving. Vitals/I&O/Wt Last Vital Signs Temp 98.6 F 05/02/21 06:00 Pulse 79 05/02/21 06:00 Resp 18 05/02/21 06:00 BP 107/65 05/02/21 06:00 Pulse Ox 97 05/02/21 06:00 A&P Additional A&P Information (1) Polysubstance dependence: (2) Bereavement: (3) Psychosis: This is a 25-year-old white female with a long history of addiction and some mental health concerns with active addiction, psychosis and bereavement who presents on a 96-hour hold desiring to be discharged. 1. Continue current medication. 2. Continue every 15 minute checks for safety. 3. Encourage individual, group and milieu therapies. 4. Encourage sober living treatment after discharge at the highest level of c are to which she is willing to commit. Involuntary Hold Information 96 Hour Hold: 96 Hour Involuntary Admission: Yes 96 Hour Hold Ending Date: 04/24/21 96 Hour Hold Ending Time: 21:27 Attestations NPU Medical Necessity Statement*: Inpatient hospitalization is medically necessary and the clinically appropriate intervention at this time. We will monitor me dications and make changes as indicated. Likely length of stay 1-3 days. Coding Level of Care Code Acute Websphere Architect for Amish Prakash
[2021-05-02 21:37] VITALS: BP 111/76; PULSE 111; RESP 18; TEMP 37.3; O2SAT 98
[2021-05-03 06:00] VITALS: BP 107/69; PULSE 97; RESP 18; TEMP 36.7; O2SAT 98
[2021-05-03] MEDS: ARIPiprazole 10 mg Tablet 20 MG PO (08:08)
[2021-05-03] MEDS: nicotine 2 mg Gum BUCCAL ×4 (08:09→21:17)
--- NOTE | 2021-05-03 13:18 | NPU.GN ---
[facility] Unit Group Topic:Communications General Mood of Group: The patient was dressed appropriately. She had good hygiene. She did appear a little sleepy still. He did participate in the group. The topic was communication. Communicating with doctors, family, friends and even authorities such as probation and parole officers. The patients were given a card a piece that asked two to three questions, for example, one was What words would you use to describe yourself? What words would others use to describe you? This opened everyone up to conversation. Every one participated and spoke with each other. We spoke about ways to speak with your doctor and ways to speak with social media coordinator to get the help that they need while they are in Neuro psych. Kristen opened up very well in group. Kristen has a good understanding of communication at this time.
[2021-05-03 14:00] VITALS: BP 109/74; PULSE 117; RESP 16; TEMP 36.8; O2SAT 98
[2021-05-03] MEDS: hyDROXYzine 25 mg Capsule 50 MG PO ×2 (17:22→21:17)
[2021-05-03 20:44] VITALS: BP 104/71; PULSE 84; RESP 16; TEMP 36.9; O2SAT 98
[2021-05-03] MEDS: trazodone 50 mg Tablet PO (21:17)
[2021-05-04 06:00] VITALS: BP 119/82; PULSE 115; RESP 119; TEMP 37.3; O2SAT 99
[2021-05-04] MEDS: ARIPiprazole 10 mg Tablet PO (09:11)
[2021-05-04] MEDS: nicotine 2 mg Gum BUCCAL (09:11)
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
[2021-05-04 13:39] VITALS: BP 119/82; PULSE 115; RESP 119; TEMP 37.3; O2SAT 99
== END 2021-05-04 14:11 | disposition home or self-care (01) | DRG 885 ==
PROVIDERS: Admitting Provider Psychiatry & Neurology Child & Adolescent Psychiatry; Visit Provider Psychiatry & Neurology Psychiatry
DX: F29 Unspecified psychosis not due to a substance or known physiological condition (principal); F19.20 Other psychoactive substance dependence, uncomplicated; Z81.8 Family history of other mental and behavioral disorders; Z63.4 Disappearance and death of family member
CPT/HCPCS: 81001; 87086; 87491; 87591; 87661; 96372; J1200; J1630; J2060; Q0162